=== PATIENT | male | born 1990 | race Hispanic/Latino ===

== ENCOUNTER 2020-03-08 11:32 | Emergency (ER) | payer OTHER, SELFPAY ==
[2020-03-08] VITALS (10 sets, daily range): BP systolic 103–134; BP diastolic 67–78; PULSE 58–86; RESP 16; TEMP 36.6; O2SAT 97–100
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
[2020-03-08] MEDS: TET,DIPH,PERTUSS(ACELL),VAC/PF 0.5 ML SYRINGE IM (12:16)
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
[2020-03-08] MEDS: ACETAMINOPHEN 325 MG TABLET 975 MG PO (12:56)
[2020-03-08] MEDS: SODIUM CHLORIDE 0.9% 1,000 ML 1000 ML IV (12:56)
[2020-03-08 12:58] LABS: Add Manual Diff / Slide Review NO; Basophils Absolute Auto 100 /uL (0-100); Basophils Percent Auto 0.5 % (0-2); Eosinophils Absolute Auto 300 /uL (0-450); Eosinophils Percent Auto 2.1 % (2-4); Hematocrit 46.1 % (41-53); Hemoglobin 15.5 g/dL (13.5-17.5); Lymphocytes Absolute Auto 1800 /uL (1100-4500); Lymphocytes Percent Auto 13.7 % (25-40); Mean Corpuscular HGB Conc 33.6 % (30-36); Mean Corpuscular Hemoglobin 28.5 PG (26-34); Mean Corpuscular Volume 84.8 fL (80-100); Monocytes Absolute Auto 800 /uL (0-900); Monocytes Percent Auto 6.2 % (3-14); Neutrophils Absolute Auto 10300 /uL (1500-7000); Neutrophils Percent Auto 77.5 % (50-75); Platelet Count 266 X10^3/uL (150-400); Red Blood Cell Count 5.44 X10^6/uL (4.5-5.9); Red Cell Distribution Width 12.9 % (11.6-14.8); White Blood Cell Count 13.3 X10^3/uL (4.5-11.0)
[2020-03-08 13:11] LABS: BUN Creatinine Ratio 14.6 (6-22); Blood Urea Nitrogen 14 mg/dL (9-20); Calcium 9.1 mg/dL (8.4-10.2); Carbon Dioxide 28 mmol/L (22-32); Chloride 103 mmol/L (98-107); Creatine Kinase 201 U/L (55-170); Estimated Glomerular Filt Rate > 60.0 mL/min (>60); Glucose 93 mg/dL (70-100); HEMOLYSIS < 15 (0-50); Potassium 3.9 mmol/L (3.4-5.1); Sodium 137 mmol/L (137-145)
[2020-03-08] MEDS: KETOROLAC 60 MG/2 ML VIAL 15 MG IV (13:31)
[2020-03-08] MEDS: BACITRACIN OINT 0.9 GM PCKT 2 APPLIC TOP (16:24)
== END 2020-03-08 16:38 | disposition home or self-care (01) ==
PROVIDERS: Emergency Provider Nurse Practitioner Family
DX: S87.82XA Crushing injury of left lower leg, initial encounter (principal); M79.605 Pain in left leg; S80.812A Abrasion, left lower leg, initial encounter; S40.811A Abrasion of right upper arm, initial encounter; R79.89 Other specified abnormal findings of blood chemistry; Z23 Encounter for immunization; W19.XXXA Unspecified fall, initial encounter; Y99.0 Civilian activity done for income or pay
CPT/HCPCS: 36415; 73060; 73552; 73562; 73590; 80048; 82550; 85025; 90471; 96361; 96374; 99284; 90715; J1885

== ENCOUNTER → 2020-03-08 15:50 | Outpatient (ROUT) | payer SELFPAY ==
[2020-03-08 15:52] LABS: Urine Drug Scr, Empl Non-NIDA See Separate Report
== END ==
DX: Z02.83 Encounter for blood-alcohol and blood-drug test (principal)
CPT/HCPCS: 81099